=== PATIENT | male | born 1970 | race Caucasian/White ===

== ENCOUNTER 2020-11-11 20:03 | Emergency (ER) | payer OTHER, SELFPAY ==
[2020-11-11 20:17] VITALS: BP 124/73; PULSE 82; RESP 20; TEMP 37.1; O2SAT 100
[2020-11-11 20:48] LABS: Alanine Aminotransferase 14 IU/L (<50); Albumin 4.3 g/dL (3.5-5.0); Albumin Globulin Ratio 1.5 (1.0-2.8); Alkaline Phosphatase 73 U/L (38-126); Aspartate Aminotransferase 27 IU/L (17-59); BUN Creatinine Ratio 20.4 (6-22); Bilirubin Total 0.6 mg/dL (0.2-1.3); Blood Urea Nitrogen 19 mg/dL (9-20); Calcium 9.1 mg/dL (8.4-10.2); Carbon Dioxide 24 mmol/L (22-32); Chloride 109 mmol/L (98-107); Estimated Glomerular Filt Rate > 60.0 mL/min (>60); Globulin 2.9 g/dL (1.7-4.1); Glucose 100 mg/dL (70-100); HEMOLYSIS 82 (0-50); Lipase 321 U/L (23-300); Potassium 4.5 mmol/L (3.4-5.1); Sodium 139 mmol/L (137-145); Total Protein 7.2 g/dL (6.3-8.2)
[2020-11-11 21:07] LABS: Add Manual Diff / Slide Review NO; Basophils Absolute Auto 100 /uL (0-100); Basophils Percent Auto 0.8 % (0-2); Eosinophils Absolute Auto 100 /uL (0-450); Eosinophils Percent Auto 0.4 % (2-4); Hematocrit 43.1 % (41-53); Hemoglobin 14.6 g/dL (13.5-17.5); Lymphocytes Absolute Auto 1800 /uL (1100-4500); Lymphocytes Percent Auto 12.5 % (25-40); Mean Corpuscular HGB Conc 33.9 % (30-36); Mean Corpuscular Hemoglobin 33.9 PG (26-34); Mean Corpuscular Volume 99.9 fL (80-100); Monocytes Absolute Auto 1000 /uL (0-900); Monocytes Percent Auto 6.9 % (3-14); Neutrophils Absolute Auto 11300 /uL (1500-7000); Neutrophils Percent Auto 79.4 % (50-75); Platelet Count 296 X10^3/uL (150-400); Red Blood Cell Count 4.31 X10^6/uL (4.5-5.9); Red Cell Distribution Width 12.6 % (11.6-14.8); White Blood Cell Count 14.2 X10^3/uL (4.5-11.0)
--- NOTE | 2020-11-11 21:30 | DI.CT.S_ITS ---
PROCEDURE: CT KIDNEY URETER BLADDER (KUB) INDICATIONS: right flank pain TECHNIQUE: Axial sections were acquired from the lung bases to the pubic symphysis. Coronal and sagittal reformats were performed. For radiation dose reduction, the following was used: automated exposure control, adjustment of mA and/or kV according to patient size. COMPARISON: None. FINDINGS: Image quality: Excellent. Lung bases: Unremarkable. Heart: No significant findings. URINARY: Right Kidney: Mild right-sided hydronephrosis and perinephric fat stranding is seen. Right Ureter: Right hydroureter is noted. Left Kidney: No obstructing renal stone or hydronephrosis. Tiny 1-2 mm nonobstructing left renal calculi are seen. Left Ureter: No hydroureter Bladder: Normal wall thickness. 2 millimeter stone is seen in dependent portion of urinary bladder just distal to right UVJ suggestive of a passed right renal stone. ABDOMEN: Liver: Liver is normal in size. 4 millimeter hypodense nodule in anterior left hepatic lobe is seen series 2, image 19 and is too small to adequately characterize. Gallbladder: Within normal limits. Biliary ducts: Unremarkable. Pancreas: Unremarkable. Spleen: Unremarkable. Adrenal Glands: Unremarkable. Stomach and Bowel: Stomach, small bowel loops, and colon are unremarkable. Appendix is visualized and is within normal limits. Peritoneum: No abnormal intraperitoneal fluid. No free air. Ventral Wall: No hernia. Abdominal Nodes: No enlarged retroperitoneal or mesenteric lymph nodes. Vessels: Aorta and inferior vena cava are normal in size. PELVIS: Pelvic Organs: Unremarkable. Pelvic Nodes: Unremarkable. Miscellaneous: No inguinal hernias are seen. Bones: No suspicious bony lesion or acute vertebral body compression fracture. Degenerative disc disease throughout lumbar spine is seen. IMPRESSION: 1. Finding is consistent with a passed 2 millimeter right renal stone with residual mild right-sided hydronephrosis and hydroureter and mild right perinephric fat stranding. No left-sided hydronephrosis. Tiny 1-2 mm nonobstructing left renal calculi. 2. No bowel obstruction. Normal appendix. No free fluid or free air. Dictated by: Omega Peters M.D. on 11/11/2020 at 21:41 Approved by: Omega Peters M.D. on 11/11/2020 at 21:45
[2020-11-11 21:34] LABS: Bacteria Urine None Seen; Culture Indicated Urine Cult Not Indicated; RBC Urine 0-1/HPF (0-5/HPF); WBC Urine 0-1/HPF (0-5/HPF)
[2020-11-11] MEDS: KETOROLAC 30 MG/ML VIAL 15 MG IV (21:48)
--- NOTE | 2020-11-11 22:04 | ED_ITS ---
HPI - Abdominal Pain General Chief Complaint: Abdominal Pain Stated Complaint: possible kidney stones Time Seen by Provider: 11/11/20 20:53 Source: patient Mode of arrival: Ambulatory History of Present Illness HPI narrative: 50-year-old gentleman with history of restless leg syndrome presents with right flank and low back pain that is been present since 2:00 p.m. today. He described it as radiating to the right groin. He has a sensation to void but was unable to the void for a couple of hours. He describes no fevers, cough, chills, vomiting, diarrhea. He has had similar symptoms in the past and presumed it was kidney stones but has never actually been seen in the emergency room for such. He currently is on no medications. He works 15-18 hour days on a [employer] and complains of significant sleep deprivation as he has to do with the restless leg syndrome during the 5 or so hours he has available to him to try to sleep. Review of Systems Review of Systems Narrative: Remainder of complete review of systems is otherwise unremarkable except for that included in the HPI. Patient History Medical History Kidney stone Restless leg syndrome Social History Smoking Status: Current every day smoker Smoking Status: Current every day smoker Exam Narrative Exam Narrative: General: Healthy appearing, in no acute distress. Able to give a complete and coherent history. Well-nourished well-developed HEENT: Moist mucous membranes, normal sclera with reactive pupils, Neck: No JVD, supple Respiratory: Lungs are clear to auscultation, no wheezing no rales no rhonchi. Full and symmetrical air movement Cardiac: Regular rate and rhythm no murmurs no bruits Abdomen: Soft, nontender, good bowel tones, no flank pain at this time Skin: Warm and dry, no rashes Neurologic: Grossly neurologically intact with no obvious asymmetries or abnormalities. Restlessly moving legs to try to keep him still. Extremities: No trauma, well perfused Psych: Cooperative, appropriate insight and affect Initial Vital Signs Initial Vital Signs: Vital Signs Temperature 98.8 F 11/11/20 20:17 Pulse Rate 82 11/11/20 20:17 Respiratory Rate 20 09/15/21 20:17 Blood Pressure 124/73 11/11/20 20:17 Pulse Oximetry 100 11/11/20 20:17 Course Orders Ordered: ED Orders 11/11/20 20:24 Complete Blood Count AUTO DIFF Stat Comprehensive Metabolic Panel Stat Lipase Stat 11/11/20 21:16 Urine Microscopic Stat 11/11/20 21:30 CT kidney ureter bladder (KUB) Stat Discontinued Medications Ketorolac Tromethamine (Ketorolac 30 Mg/Ml Vial) 15 mg IV NOW ONE Stop: 11/11/20 21:31 Last Admin: 11/11/20 21:48 Dose: 15 mg Documented by: JOHN Vital Signs Vital signs: Vital Signs - 8 hr 11/11/20 20:17 Temperature 98.8 F Pulse Rate 82 Respiratory Rate 20 Blood Pressure 124/73 Pulse Oximetry 100 MDM - Abdominal Pain Lab Data Result diagrams: 11/11/20 20:24 11/11/20 20:24 Labs: Lab Results 11/11/20 11/11/20 11/11/20 Range/Units 20:24 20:24 21:16 WBC 14.2 H (4.5-11.0) X10^3/uL RBC 4.31 L (4.5-5.9) X10^6/uL Hgb 14.6 (13.5-17.5) g/dL Hct 43.1 (41-53) % MCV 99.9 (80-100) fL MCH 33.9 (26-34) PG MCHC 33.9 (30-36) % RDW 12.6 (11.6-14.8) % Plt Count 296 (150-400) X10^3/uL Neut % (Auto) 79.4 H (50-75) % Lymph % (Auto) 12.5 L (25-40) % [place] % (Auto) 6.9 (3-14) % Eos % (Auto) 0.4 L (2-4) % Baso % (Auto) 0.8 (0-2) % Neut # (Auto) 34721 H (6008-1874) /uL Lymph # (Auto) 1800 (0563-2231) /uL [place] # (Auto) 1000 H (0-900) /uL Eos # (Auto) 100 (0-450) /uL Baso # (Auto) 100 (0-100) /uL Sodium 139 (137-145) mmol/L Potassium 4.5 (3.4-5.1) mmol/L Chloride 109 H (98-107) mmol/L Carbon Dioxide 24 (22-32) mmol/L BUN 19 (9-20) mg/dL Creatinine 0.93 (0.66-1.25) mg/dL Estimated GFR > 60.0 (>60) mL/min BUN/Creatinine Ratio 20.4 (6-22) Glucose 100 (70-100) mg/dL Calcium 9.1 (8.4-10.2) mg/dL Total Bilirubin 0.6 (0.2-1.3) mg/dL AST 27 (17-59) IU/L ALT 14 (<50) IU/L Alkaline Phosphatase 73 (38-126) U/L Total Protein 7.2 (6.3-8.2) g/dL Albumin 4.3 (3.5-5.0) g/dL Globulin 2.9 (1.7-4.1) g/dL Albumin/Globulin Ratio 1.5 (1.0-2.8) Lipase 321 H (23-300) U/L Urine RBC 0-1/hpf (0-5/HPF) Urine WBC 0-1/hpf (0-5/HPF) Urine Bacteria None seen (None) Ur Culture Indicated? Cult not indicated Point of care testing: Urine Dip Bedside Urine Glucose Negative Bedside Urine Bilirubin - Negative Bedside Urine Ketone - Negative Urine Specific [place] 1.025 Bedside Urine Occult Blood + Bedside Urine pH 6.0 Bedside Urine Protein - Negative Bedside Urine Urobilinogen - Negative Bedside Urine Nitrite - Negative Bedside Urine Leukocytes - Negative Esterase Imaging Data CT scan - abdomen/pelvis: Radiologist's Impression: FINDINGS: Image quality: Excellent. Lung bases: Unremarkable. Heart: No significant findings. URINARY: Right Kidney: Mild right-sided hydronephrosis and perinephric fat stranding is seen. Right Ureter: Right hydroureter is noted. Left Kidney: No obstructing renal stone or hydronephrosis. Tiny 1-2 mm nono bstructing left renal calculi are seen. Left Ureter: No hydroureter Bladder: Normal wall thickness. 2 millimeter stone is seen in dependent portion of urinary bladder just distal to right UVJ suggestive of a passed right renal stone. ABDOMEN: Liver: Liver is normal in size. 4 millimeter hypodense nodule in anterior left hepatic lobe is seen series 2, image 19 and is too small to adequately characterize. Gallbladder: Within normal limits. Biliary ducts: Unremarkable. Pancreas: Unremarkable. Spleen: Unremarkable. Adrenal Glands: Unremarkable. Stomach and Bowel: Stomach, small bowel loops, and colon are unremarkable. Appendix is visualized and is within normal limits. Peritoneum: No abnormal intraperitoneal fluid. No free air. Ventral Wall: No hernia. Abdominal Nodes: No enlarged retroperitoneal or mesenteric lymph nodes. Vessels: Aorta and inferior vena cava are normal in size. PELVIS: Pelvic Organs: Unremarkable. Pelvic Nodes: Unremarkable. Miscellaneous: No inguinal hernias are seen. Bones: No suspicious bony lesion or acute vertebral body compression fracture. Degenerative disc disease throughout lumbar spine is seen. IMPRESSION: 1. Finding is consistent with a passed 2 millimeter right renal stone with residual mild right-sided hydronephrosis and hydroureter and mild right perinephric fat stranding. No left-sided hydronephrosis. Tiny 1-2 mm nonobstructing left renal calculi. 2. No bowel obstruction. Normal appendix. No free fluid or free air. Dictated by: Omega Peters M.D. on 11/11/2020 at 21:41 MDM Narrative Medical decision making narrative: 50-year-old gentleman presents with right flank pain since approximately 2:00 p.m.. Pains abated once arriving in the emergency room. He also complains of significant restless leg symptoms as well as sleep deprivation due to the restless leg syndrome. CT scan suggests a recently passed right kidney stone which fits with his clinical presentation. No evidence of infection, appendicitis, acute renal failure or other complications that would require hospitalization today. He is safe for home discharge Discharge Plan Departure Patient Disposition: Home Clinical Impression: Kidney stone, Restless leg syndrome Instructions: DI for Kidney Stones Activity Restrictions/Additional Instructions: Thank you for coming in tonight. You did have a kidney stone and it looks like you have successfully passed it. Congratulations. Using 400 mg of ibuprofen (2 [id number] pills) and 1 Tylenol every 6 hours can be very helpful in controlling pain. Make sure that your keeping yourself well hydrated to the try and prevent forming another stone For your restless leg syndrome I am going to suggest that you try Mirapex 0.125 mg nightly. This is an as needed use. Unfortunately we do not have a dose in are nighttime emergency room medications store for you to try. If you have worsening symptoms, fevers or develop additional problems, please feel free to return to the ER
[2020-11-11 22:47] VITALS: BP 126/85; PULSE 76; RESP 18; O2SAT 100
== END 2020-11-11 22:48 | disposition home or self-care (01) ==
PROVIDERS: Emergency Provider Emergency Medicine
DX: N20.0 Calculus of kidney (principal); G25.81 Restless legs syndrome
CPT/HCPCS: 36415; 51798; 74176; 80053; 81003; 81015; 83690; 85025; 96374; 99284; J1885